=== PATIENT | female | born 1985 | race American Indian/Alaskan Native ===

== ENCOUNTER 2016-04-12 22:49 | Outpatient (CLI) | payer MEDICAID ==
[2016-04-12] MEDS ORDERED: LACTATED RINGERS 1,000 ML IV SCH ×2 (23:45)
[2016-04-13] MEDS ORDERED: VISTARIL ONE (01:03)
[2016-04-13 01:09] LABS: Urine Drugs of Abuse Note Disclamer
[2016-04-13] MEDS ORDERED: VISTARIL PO ONE (01:17)
[2016-04-13 01:22] LABS: Bilirubin,Urine NEG (Negative); Blood,Urine NEG (Negative); Ketones,Urine NEG (Negative); Leukocyte Esterase,Urine NEG (Negative); Nitrite,Urine NEG (Negative); Protein,Urine <15 mg/dL mg/dL (Negative); RBC,Urine < 1.0 /HPF (0.0-6.0); Urobilinogen,Urine < 2.0 mg/dL (<2.0); WBC,Urine < 1.0 /HPF (0.0-6.0)
[2016-04-13] MEDS ORDERED: SUBLIMAZE ONE (03:22)
[2016-04-13] MEDS ORDERED: LACTATED RINGERS 1,000 ML ONE (03:22)
[2016-04-13] MEDS ORDERED: SUBLIMAZE IV ONE (03:40)
[2016-04-13] MEDS ORDERED: LACTATED RINGERS 1,000 ML IV SCH (04:00)
== END 2016-04-13 08:35 | disposition home or self-care (01) ==
LOC: TRG 22:49
PROVIDERS: ATTEND Obstetrics & Gynecology
DX: O26.893 Other specified pregnancy related conditions, third trimester (principal); O62.0 Primary inadequate contractions; R42 Dizziness and giddiness; H53.8 Other visual disturbances; Z3A.39 39 weeks gestation of pregnancy
CPT/HCPCS: 80307; 81001; J3010; J7120; 59025; 96360; 96361; Q0177